=== PATIENT | male | born 1945 | race Caucasian/White ===

== ENCOUNTER 2016-11-21 20:11 | Outpatient (CLI) | payer MEDICARE, BC | END 2016-11-21 23:59 | disposition critical access hospital (66) | DX: R55 Syncope and collapse (principal) | CPT/HCPCS: A0425; A0429 ==

== ENCOUNTER 2016-11-21 20:21 | Emergency (ER) | payer MEDICARE, BC | END 2016-11-21 22:00 | disposition home or self-care (01) | DX: R55 Syncope and collapse (principal); I10 Essential (primary) hypertension; E78.00 Pure hypercholesterolemia, unspecified; I25.10 Atherosclerotic heart disease of native coronary artery without angina pectoris; M19.90 Unspecified osteoarthritis, unspecified site ==

== ENCOUNTER 2022-11-28 09:38 | Outpatient (CLI) | payer MEDICARE, BC ==
--- NOTE | 2022-11-28 12:19 | XRAY Report ---
PROCEDURE: Foot 3 View RT INDICATIONS: RIGHT FOOT PAIN TECHNIQUE: 3 views of the foot were acquired. COMPARISON: None. FINDINGS: Bones: No fractures or dislocations. No suspicious bony lesions. Soft tissues: No suspicious soft tissue calcifications or masses. IMPRESSION: No acute bony abnormality. If pain persists with conservative management, consider repeat radiographs in 10-14 days or cross-sectional imaging. Reviewed by: Aleksandr Smith on 11/28/2022 12:18 PM PDT Approved by: Aleksandr Smith on 11/28/2022 12:18 PM PDT Station ID: [id number]
== END 2022-11-28 09:39 | disposition home or self-care (01) ==
LOC: DI 09:38
PROVIDERS: ATTEND Podiatrist
DX: M79.671 Pain in right foot (principal)

== ENCOUNTER 2023-07-01 07:39 | Outpatient (CLI) | payer MEDICARE, BC | END 2023-07-01 07:40 | disposition home or self-care (01) | LOC: LAB 07:39 | PROVIDERS: ATTEND Internal Medicine Cardiovascular Disease | DX: Z53.9 Procedure and treatment not carried out, unspecified reason (principal) ==

== ENCOUNTER 2023-07-02 07:20 | Outpatient (CLI) | payer MEDICARE, BC ==
[2023-07-02 07:55] LABS: CHOL/HDL RATIO 2.4 (<5.0); CHOLESTEROL 105 mg/dL; HDL CHOLESTEROL 43 mg/dL; LDL CHOLESTEROL,CALCULATED 45 mg/dL; TRIGLYCERIDES 87 mg/dL (48-352); VLDL CHOLESTEROL 17 mg/dL
== END 2023-07-02 07:21 | disposition home or self-care (01) ==
LOC: LAB 07:20
PROVIDERS: ATTEND Internal Medicine Cardiovascular Disease
DX: I25.10 Atherosclerotic heart disease of native coronary artery without angina pectoris (principal); I10 Essential (primary) hypertension
CPT/HCPCS: 36415; 80061; 83721